=== PATIENT | female | born 1975 | race American Indian/Alaskan Native ===

== ENCOUNTER 2019-03-29 08:04 | Day surgery (SDC) | payer OTHER ==
--- NOTE | 2019-03-29 10:05 | Anesthesia Day of Surgery ---
Anesthesia Day of Surgery - Day of Surgery Patient Examined: Yes Patient H&P Reviewed: Yes Patient is NPO: Yes
--- NOTE | 2019-03-29 10:05 | Anesthesia Consultation ---
Anesthesia Consult and Med Hx Date of service: 03/29/19 - Airway Anesthetic Teeth Evaluation: Good ROM Head & Neck: Adequate Mental/Hyoid Distance: Adequate Mallampati Class: Class II Intubation Access Assessment: Good - Pulmonary Exam CTA: Yes - Cardiac Exam Cardiac Exam: RRR - Pre-Operative Health Status ASA Pre-Surgery Classification: ASA2 Proposed Anesthetic Plan: MAC - Pulmonary Hx Smoking: No - Cardiovascular System Hx Hypertension: Yes
[2019-03-29] MEDS ORDERED: DIPRIVAN 10 MG/ML IV ONE ×2 (10:18)
--- NOTE | 2019-03-29 10:45 | Operative Report ---
Operative Report Operative Report: DOS: 03/29/19 SURGEON: Benny Acevedo MD COLONOSCOPY with snare polypectomy REPORT PREOPERATIVE AND POSTOPERATIVE DIAGNOSIS: Screening colonoscopy DESCRIPTION OF PROCEDURE: The colonoscope was passed to the terminal ileum as identified by the ileal tissue. Scope was carefully withdrawn. Retroflexion was performed in the rectum. At the end of procedure, the scope was cleaned using normal technique. Vital signs monitored continuously throughout. SEDATION: Provided by [facility]iology [facility]. Quality of the prep was good COMPLICATIONS: None. ESTIMATED BLOOD LOSS: Minimal FINDINGS: * Normal Terminal Ileum * Large semi sessile 15mm polyp in the ascending colon. Injected 2cc NS to lift the polyp, the used hot snare to perform a complete polypectomy. the polyp was too large to suction through the scope so the polyp was grasped using the snare, the scope was withdrawn to remove the polyp, then the scope was reinserted to the polypectomy site and scope withdrawal to look for further polyps was resumed. * 3mm semi sessile polyp in the sigmoid colon * Medium Internal hemorrhoids * Remainder of the exam was normal RECOMMENDATIONS: * Repeat colonoscopy based upon path results, very likely in 3 years, then every 5 years thereafter * All first degree relatives (parents, brothers, sisters, children) will likely need to get screening colonoscopies starting at age 36 and every 5 years thereafter due to increased risk because of the findings on this colonoscopy. I will confirm this once pathology returns CC note to PCP Amelie Barrera N.P.
[2019-03-29] MEDS ORDERED: NACL 0.9% 1000 ML 1,000 ML IV SCH (11:00)
[2019-03-29] MEDS ORDERED: XYLOCAINE MPF 2% ONE (11:00)
[2019-03-29 13:34] VITALS: BP 136/73
== END 2019-03-29 08:05 | disposition home or self-care (01) ==
LOC: GIO 08:04
PROVIDERS: ATTEND Student in an Organized Health Care Education/Training Program
DX: Z12.11 Encounter for screening for malignant neoplasm of colon (principal); D12.2 Benign neoplasm of ascending colon; D12.5 Benign neoplasm of sigmoid colon; K64.8 Other hemorrhoids; I10 Essential (primary) hypertension; K60.2 Anal fissure, unspecified; Z98.890 Other specified postprocedural states; Z90.49 Acquired absence of other specified parts of digestive tract; Z79.899 Other long term (current) drug therapy; Z88.0 Allergy status to penicillin; Z83.3 Family history of diabetes mellitus
CPT/HCPCS: 45381; 45385; 88305; J2704; J7030

== ENCOUNTER 2019-08-20 16:54 | Emergency (ER) | payer OTHER ==
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
[2019-08-20] MEDS ORDERED: KETOROLAC 60 MG/2 ML INJ IM ONE (20:30)
[2019-08-20 20:32] VITALS: BP 155/80
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
== END 2019-08-20 21:02 | disposition home or self-care (01) ==
LOC: ED 16:54
DX: S09.90XA Unspecified injury of head, initial encounter (principal); I10 Essential (primary) hypertension; Z90.49 Acquired absence of other specified parts of digestive tract; Z79.899 Other long term (current) drug therapy; Z88.0 Allergy status to penicillin; V49.49XA Driver injured in collision with other motor vehicles in traffic accident, initial encounter; Y93.89 Activity, other specified; Y92.410 Unspecified street and highway as the place of occurrence of the external cause; Y99.8 Other external cause status
CPT/HCPCS: 96372; 99282; J1885